=== PATIENT | female | born 1980 | race Caucasian/White ===

== ENCOUNTER 2018-01-03 15:27 | Emergency (ER) | payer OTHER, SELFPAY ==
[2018-01-03 15:28] VITALS: BP 148/88; PULSE 93; RESP 16; TEMP 36.3; BMI 26.6
--- NOTE | 2018-01-03 15:45 | ED.DCSUM_ITS ---
- ER Visit Summary Date of Service: 01/03/18 Chief Complaint: Vaginal discharge History of Present Illness: The patient is a 37 F with a foul-smelling vaginal discharge for the past 3 weeks. She believes she has an STD. She denies itching or dysuria. 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 She does not use any other form of control. Physical Examination: Vital signs are gross unremarkable. Patient is in no acute distress and is nontoxic appearing. Head and neck examination is normal. Heart is regular rate and rhythm. Palpable pulses are noted throughout. Lungs are clear with good air movement throughout. Abdomen is soft and nontender. Pelvic examination reveals normal external genitalia with no lesions. Cervix is normal with no lesions. No discharge is noted. She has no tenderness to palpation. Extremity examination is unremarkable with full range of motion. Test Results: Urinalysis and urine test is negative. Urine was sent for gonorrhea and Chlamydia testing. Emergency Department Course and Treatment: Patient will be called if her gonorrhea or chlamydia test returns positive. Otherwise patient is to follow- up with [facility] and she be referred to Dr. Rosario who is on-call today for no doc. Treatment Plan: [] Disposition: Discharge Impression: Vaginal discharge This note was generated with [employer] dictation software. It may contain incorrect words, spelling, and punctuation that were not noted in review of the chart prior to signing ED Disposition - Plan for ED Patient: Chief Complaint: Female C/O Referrals: Jez Spence DO [NON-STAFF] -
[2018-01-03 16:02] LABS: Bacteria 0 SEEN /hpf (None Seen); Mucous, Urine 0 SEEN /hpf (<or=2+); Red Blood Cells-Urine 0 SEEN /hpf (0-5); Squamous Epithelial Cells - UA 0 SEEN /hpf (5-10); White Blood Cells 0 SEEN /hpf (0-5)
[2018-01-03 16:12] LABS: Color, Urine Yellow (Yellow); Glucose, Dipstick Normal (Normal); Ketone-Dipstick Negative (Negative); Leukocyte Esterase-Dipstick Negative /ul (Negative); Nitrite-Dipstick Negative (Negative); Occult Blood-Urine Negative /ul (Negative); Protein-Dipstick Negative (Negative); Urine Bilirubin Dipstick Negative (Negative); Urine Clarity Clear (Clear); Urine Urobilinogen Normal (Normal)
[2018-01-03 16:15] LABS: Internal QC Validated? YES +Cl - CLEAR BKGD; Pregnancy, Urine Negative Negative
--- NOTE | 2018-01-03 16:30 | ED.DEP ---
ED Disposition - Plan for ED Patient: Disposition: Home or Assisted Living Chief Complaint: Female C/O Instructions: ED Pelvic Pain [facility] Referrals: Jez Spence DO [NON-STAFF] - Michael Rosario MD [STAFF PHYSICIAN] - As Needed
[2018-01-03 16:36] VITALS: PULSE 64; RESP 16; O2SAT 99
[2018-01-03 18:59] LABS: Chlamydia Trachomatis by PCR Negative (Negative); Neisserai gonorrhoeae by PCR Negative (Negative); Probe Check PASS; Sample Adequacy Control PASS; Specimen Processing Control PASS
== END 2018-01-03 16:37 | disposition home or self-care (01) ==
PROVIDERS: Emergency Provider Emergency Medicine
DX: N89.8 Other specified noninflammatory disorders of vagina (principal); Z72.0 Tobacco use
CPT/HCPCS: 81001; 81025; 87491; 87591; 99282